=== PATIENT | female | born 1985 | race Caucasian/White ===

== ENCOUNTER 2021-06-06 14:16 | Emergency (ER) | payer OTHER | END 2021-06-06 15:53 | disposition home or self-care (01) | LOC: BURERS 14:16 | DX: U07.1 COVID-19 (principal); R00.0 Tachycardia, unspecified; T48.4X5A Adverse effect of expectorants, initial encounter | CPT/HCPCS: 93005 ==

== ENCOUNTER 2022-04-17 09:38 | Emergency (ER) | payer OTHER ==
[2022-04-17 10:33] LABS: #Lymphocytes 2.4 thou/uL (1.20-3.40); #Monocytes 0.4 thou/uL (0.11-0.59); #Neutrophils 3.5 thou/uL (1.40-6.50); %Basophils 0.7 % (0.0-1.0); %Eosinophils 0.3 % (0.0-10.0); %Lymphocytes 37.3 % (21.0-51.0); %Monocytes 6.9 % (0.0-10.0); %Neutrophils 54.8 % (42.0-75.0); Hemoglobin 14.3 g/dL (12.0-16.0); Mean Corpuscular HGB CONC 33.8 g/dL (32.0-36.0); Mean Corpuscular Hemoglobin 28.1 pg (27.0-31.0); Mean Corpuscular Volume 83.3 fl (78.0-98.0); Mean Platelet Volume 6.9 fL (7.4-10.4); Platelet Count 461 10x3/uL (130-400); RBC Distribution Width 10.9 % (11.5-14.5); Red Blood Cell (RBC) Count 5.07 mill/uL (4.20-5.40); White Blood Cell (WBC) Count 6.4 10x3/uL (4.8-10.8)
[2022-04-17 10:50] LABS: ALT (SGPT) 32 U/L (8-55); AST (SGOT) 22 U/L (5-34); Albumin 4.3 g/dL (3.5-5.0); Alkaline Phosphatase 57 U/L (40-110); Anion Gap 14 mmol/L (10-20); BUN (Urea Nitrogen) 14 mg/dL (7.0-18.7); Bilirubin, Total 0.4 mg/dL (0.2-1.2); Calc. Creatinine Clearance 0 mL/min (70-130); Calcium 9.5 mg/dL (7.8-10.44); Carbon Dioxide 25 mmol/L (22-29); Chloride 105 mmol/L (98-107); Estimated GFR 98; Globulin 3.6 g/dL (2.4-3.5); Glucose 93 mg/dL (70-105); Potassium 3.9 mmol/L (3.5-5.1); Protein, Total 7.9 g/dL (6.0-8.3); Sodium 140 mmol/L (136-145)
== END 2022-04-17 11:46 | disposition home or self-care (01) ==
LOC: BURERS 09:38
DX: E86.0 Dehydration (principal); R19.7 Diarrhea, unspecified
CPT/HCPCS: 36415; 80053; 85025; 87804; 96360